=== PATIENT | female | born 1985 | race Caucasian/White ===

== ENCOUNTER 2017-02-18 10:26 | Outpatient (CLI) | payer BC ==
--- NOTE | 2017-02-18 12:17 | RAD ---
GASTROGRAFIN SWALLOW: History: Esophageal dilatation. Radiation dosimetry: 0.6 minutes of fluoroscopy, AK of 8.0 milligray. Technique: Gastrografin was given orally and spot images obtained. FINDINGS: The esophagus demonstrates no significant evidence of esophageal masses or lesion. No evidence of res idual obvious stricture is seen. There is no evidence of extra esophageal extension of contrast. The contrast passes into the stomach without difficulty. No evidence of esophageal injury is seen. The contrast passes the proximal esophagus and hypopharynge al region extending into the mid and distal esophagus passing without difficulty into the stomach. POS: [facility]
== END 2017-02-18 10:27 | disposition home or self-care (01) ==
LOC: RAD 10:26
PROVIDERS: ATTEND Internal Medicine Gastroenterology
DX: Q39.4 Esophageal web (principal); T14.8XXA Other injury of unspecified body region, initial encounter
CPT/HCPCS: 74220

== ENCOUNTER 2017-08-27 09:47 | Day surgery (SDC) | payer BC ==
[2017-08-26 08:30] VITALS: BMI 26.5
[2017-08-27] MEDS ORDERED: Heparin 5,000 UNITS/ML VIAL ONE (10:46)
[2017-08-27] MEDS ORDERED: CEFAZOLIN/Water 2 GM/20 ML SYRINGE ONE (10:46)
[2017-08-27 11:07] LABS: BHCG - Serum Negative (NEGATIVE); Pregs Control Background? CLEAR/WHITE (CLR/WHITE); Pregs Control Bar Appear? YES (CONTROL BAR)
[2017-08-27] MEDS ORDERED: Fentanyl 100 MCG/2 ML VIAL ONE ×3 (11:57→17:33)
[2017-08-27] MEDS ORDERED: Midazolam HCl 2 mg/2 ml Vial ONE (11:57)
[2017-08-27] MEDS ORDERED: Bupivacaine/Epinephrine 0.25% 30 ML VIAL ONE ×2 (12:10→12:26)
[2017-08-27] MEDS ORDERED: Gentamicin 80 MG/2 ML VIAL ONE (12:10)
[2017-08-27] MEDS ORDERED: EPINEPHrine 1 MG/ML AMP ONE (12:10)
[2017-08-27] MEDS ORDERED: Sodium Chloride 0.9% 20 ML ONE (12:10)
[2017-08-27] MEDS ORDERED: Lidocaine 1% (PF) 30 ML VIAL ONE (12:10)
--- NOTE | 2017-08-27 22:49 | OP ---
PREOPERATIVE DIAGNOSIS: Macromastia. POSTOPERATIVE DIAGNOSIS: Macromastia. PROCEDURE: Bilateral breast reduction. OPERATIVE FINDINGS: Right breast resection 305 grams. Left breast resection 318. PROCEDURE IN DETAIL: Following induction of adequate anesthesia, the patient was prepped and draped in usual sterile fashion in the supine position after being preoperatively marked from modified pierce pattern breast reduction. The nipple was circumcised around the 42 mm nipple sizer. The inferior po le of the breast was de-epithelialized. Skin flaps were then raised superiorly, medially, and latera lly. Dermoglandular units were then resected superiorly, medially, and laterally to sculpt a central mound to protect viability and sensibility. The field was copiously irrigated and inspected for met iculous hemostasis prior to closure of the inverted T with interrupted 3-0 PDS suture and running 3-0 Monocryl suture. The nipple was brought out through a nipple defect and inset using 3-0 Monocryl nunn ture. Similar procedure was done on each side. The patient tolerated the procedure well.
== END 2017-08-27 19:00 | disposition home or self-care (01) ==
LOC: SDC 09:47
PROVIDERS: ATTEND Plastic Surgery
PROC: 0HBV0ZZ Excision of Bilateral Breast, Open Approach (ICD-10-PCS; principal; 2017-08-27)
DX: N62 Hypertrophy of breast (principal); Z79.899 Other long term (current) drug therapy
CPT/HCPCS: 36415; 84703; 96374; A4216; J0171; J1580; J1644; J2001; J2250; J3010; J3370; J3490